=== PATIENT | female | born 1955 | race Caucasian/White ===

== ENCOUNTER → 2024-10-10 12:35 | Outpatient (REF) | payer MEDICARE, OTHER, SELFPAY | LOC: PAVMRI 12:35 | PROVIDERS: ATTENDING PHYSICIAN Physician Assistant Surgical; FAMILY PHYSICIAN Family Medicine | DX: S42.291A Other displaced fracture of upper end of right humerus, initial encounter for closed fracture (principal) | CPT/HCPCS: 73221 ==

== ENCOUNTER 2024-10-21 20:06 | Emergency (ER) | payer MEDICARE, OTHER, SELFPAY ==
[2024-10-21 20:16] VITALS: BP 140/84
[2024-10-21 20:37] LABS: Urine Character Clear (Clear)
[2024-10-21 20:41] LABS: Hematocrit 41.2 % (37.0-47.0); Hemoglobin 13.0 g/dL (12.0-16.0); Mean Corp Hgb Conc. 31.6 g/dL (33.0-37.0); Mean Corpuscular Volume 80.2 fL (81.0-99.0); Nucleated Red Blood Cells % 0 %; Platelet Count 344 10^3/uL (130-400); Red Cell Dist. Width 19.3 % (11.5-14.5)
[2024-10-21 20:55] LABS: ALT (SGPT) 12 U/L (0-35); AST (SGOT) 17 U/L (14-36); Albumin 4.8 g/dl (3.5-5.0); Alkaline Phosphatase 107 U/L (38-126); Blood Urea Nitrogen 16 mg/dl (7-17); Calcium 9.6 mg/dl (8.4-10.2); Carbon Dioxide 27 mmol/L (22-30); Chloride 106 mmol/L (98-107); Glucose 111 mg/dl (70-99); Potassium 3.8 mmol/L (3.5-5.1); Sodium 142 mmol/L (135-145); Total Protein 7.6 g/dl (6.3-8.2); eGFR > 60.00
[2024-10-21 20:56] LABS: Lipase 25 U/L (23-300)
[2024-10-21 20:58] LABS: Urine Squamous Cell >30 /LPF (Few)
--- NOTE | 2024-10-22 01:04 | ED.GENMED ---
History of Present Illness
General
Chief Complaint: Abdominal Pain
Source: patient and spouse
Exam Limitations: none
Time Seen by Provider: 10/22/24 00:33
Nursing documentation reviewed up to this point in time: agreed with
History of Present Illness
History of Present Illness:
69-year-old female presenting to the emergency department today with concerns of right upper quadrant abdominal pain associated nausea no vomiting or diarrhea over the past 3 days worsening today. No fevers. No history of abdominal surgeries.
Past History
Past History
ED Past Medical History: None
ED Past Surgical History: Other (Noncontributory)
Social History
Alcohol: Occasional
Drug: None
Personal:
Living: with family
Employment: Employed
Family History
Family History: Other (Noncontributory)
Review of Systems
Review of Systems
Allergies reviewed?: Yes
All Other Systems: ROS reviewed and negative except as documented in HPI and ROS
Phy Exam
Physical Exam
Physical Exam:
GENERAL: Alert , in no apparent distress
EYE: pupils equal and reactive
NECK: Supple, no significant adenopathy.
ENT: o/p clr, mmm.
CARDIAC: Regular rate and rhythm .
LUNGS: Clear breath sounds bilaterally, no acute respiratory distress, no wheezes/rales/rhonchi
ABDOMEN: Right upper quadrant pain positive Mann's.
NEUROLOGICAL: Alert and oriented, no focal neuro deficits
SKIN: Warm and dry, skin intact.
MUSCULOSKELETAL: No edema, well perfused.
PSYCH: Normal and appropriate interaction.
Course
Orders/Labs/Results
Orders:
Orders
10/21/24 20:29
Complete Blood Count/With Diff Urgent
Comprehensive Metabolic Panel Urgent
Lipase Urgent
Urinalysis Reflex To Culture Urgent
Date Specimen was Collected: 10/21/24
Time Specimen was Collected: 20:19
Urine Microscopic Reflex Cult Urgent
Urine Culture Urgent
MEGHAN Source: U
Specimen Description:
Date Specimen was Collected: 10/21/24
Time Specimen was Collected: 20:19
10/22/24 00:42
US Abdomen Complete/Upper Urgent
Comment:
Reason For Exam: RUQ pain
10/22/24 01:00
HYDROmorphone [Dilaudid] 0.5 mg IV NOW STA
Ondansetron Injectable [Zofran] 4 mg IV NOW STA
10/22/24 02:45
CT Abd/Pel (IV only)-DH only Urgent
Comment:
Reason For Exam: right sided abd pain
10/22/24 04:21
EKG [Electrocardiogram (*1)] Urgent
Reason for Study: Abdominal Pain
EKG- Treatment ONCE
Abnormal Lab Results
10/21/24
20:29
MCV 80.2 L fL
(81.0-99.0)
MCH 25.3 L pg
(27.0-31.0)
MCHC 31.6 L g/dL
(33.0-37.0)
RDW 19.3 H %
(11.5-14.5)
Glucose 111 H mg/dl
(70-99)
Ur Occult Blood Reflex 1+ A
(Negative)
Leukocyte Esterase Rfl 1+ A
(Negative)
Urine RBC 3-6 A /HPF
(0-2)
Urine WBC (Reflex) 11-15 A /HPF
(0-5)
Urine Bacteria (Reflex) Few A
(Negative)
Urine Albumin (Reflex) 1+ A
(Neg - Trace)
10/21/24 20:29
10/21/24 20:29
Vital Signs
Initial and Last Documented VS:
Initial Vital Signs
Temp Pulse Resp BP Pulse Ox
98.4 F 96 16 140/84 94
10/21/24 20:16 10/21/24 20:16 10/21/24 20:16 10/21/24 20:16 10/21/24 20:16
Last Documented Vital Signs
Temp Pulse Resp BP Pulse Ox
98.4 F 84 16 131/73 98
10/21/24 20:16 10/22/24 03:00 10/22/24 03:00 10/22/24 03:00 10/22/24 03:00
MDM/Problems Addressed
MDM/Problems Addressed:
69-year-old female presenting to the emergency department today with concerns of right upper quadrant pain worsening over the past 3 days specifically worsening over the past few hours. Reproducible here to the right upper quadrant some mild
distention diffusely. On examination here symptoms are specifically reproducible on exam making primary abdominal pathology most likely. Cardiac etiology seems very unlikely in the circumstance. EKG without obvious emergent or acute changes.
Labs unremarkable CT and ultrasound without emergent findings. Patient sleeping for multiple hours while here. Significant process appears unlikely at this time stable for close outpatient follow-up. Return precautions given.
*Pulse Oximetry
SaO2: 94
Oxygen Mode of Delivery: Room air
Patient hypoxic: no (98)
*Critical Care Note
Total Time (30-74mins, 75-104mins- exclusive of procedures): Not Applicable
ED Attending Note
-
Portions of this chart may have been created with voice recognition software.� Occasional wrong word or��sound alike� substitutions may have occurred due to the inherent limitations of voice recognition software.
Discharge Plan
Departure
Patient Disposition: Home (Routine Discharge)
Date of Disposition: 10/22/24
Time of Disposition: 04:51
Patient with high blood pressure during this ER visit?: No
Condition: Good
Covid-19: Not Applicable
Discharge Problem:
Abdominal pain
Instructions: Abdominal Pain
Prescriptions:
New
pantoprazole [Protonix] 40 mg tablet,delayed release (DR/EC)
40 mg PO DAILY Qty: 14 0RF
No Action
Sleep Medication
PO PRN PRN (Reason: sleep)
Patient Comments:
pt. states that this is a new medication. She is not sure of the name ot the dose.
maitutfjsg-hpowrtgiedqln-tybw 1 EACH tablet
1 - 2 ea PO Q6HPRN PRN (Reason: headache) Qty: 20 0RF
amoxicillin 500 MG capsule
500 mg PO TID Qty: 30 0RF
Referrals:
Vidya Hoyt DO [Family Provider]
Activity Restrictions/Additional Instructions:
You came to the emergency department today with concerns of abdominal pain. Here you had extensive workup without obvious explanation. Please follow-up closely as an outpatient. Return for any worsening, new or concerning symptoms.
Interventions
Interventions:
*Risk Screen - Suicide Last Done: 10/21/24 20:16
*General Assessment Last Done: 10/22/24 01:26
*Neglect/Abuse Screening Last Done: 10/21/24 20:16
*ED- Fall Risk Assessment Last Done: 10/21/24 20:16
KN-Vqbvis-Dyoqhtdpvw Assessment Last Done: 10/22/24 01:26
Discharge Date and Time
Print Language: ALGERIAN
[2024-10-22] MEDS: ZOFRAN 4 MG IV (01:18)
[2024-10-22] MEDS: DILAUDID 0.5 MG IV (01:18)
[2024-10-22 01:26] VITALS: BP 135/75
[2024-10-22 03:00] VITALS: BP 131/73
== END 2024-10-22 05:50 | disposition home or self-care (01) ==
LOC: EMR 20:06
PROVIDERS: Student in an Organized Health Care Education/Training Program; EMERGENCY PHYSICIAN Emergency Medicine; FAMILY PHYSICIAN Family Medicine
DX: R10.11 Right upper quadrant pain (principal); R11.0 Nausea
CPT/HCPCS: 99284; 96374; 96375; 74177; 76700; 80053; 81003; 81015; 83690; 85025; 87086; 93005; Q9967

== ENCOUNTER 2024-10-31 06:15 | Emergency (ER) | payer MEDICARE, OTHER, SELFPAY ==
[2024-10-31] VITALS (7 sets, daily range): BP systolic 119–149; BP diastolic 74–92; BMI 22.6
--- NOTE | 2024-10-31 07:04 | ED.GENMED ---
History of Present Illness
General
Chief Complaint: Abdominal Pain
Source: patient
Time Seen by Provider: 10/31/24 06:43
History of Present Illness
History of Present Illness:
Note:
CHIEF COMPLAINT(S)
Right-sided abdominal and flank pain persisting for approximately three weeks.
HISTORY OF PRESENT ILLNESS
The patient is a 69-year-old female who presents with complaints of right-sided abdominal and flank pain for approximately three weeks. She has a high pain tolerance and initially hoped the pain would subside on its own. Despite previous visits to
the emergency department and thorough evaluations�including a negative computed tomography scan and ultrasound of the abdomen and pelvis, a normal electrocardiogram, and an unremarkable endoscopy�the pain persists. She reports difficulty eating but
denies vomiting. She describes the pain as located near the ribs and a bit lower, worsened by movement, but not by deep breaths. The patient reports being very tender in the rib area and states that the pain is intolerable.
ADDITIONAL HISTORY OBTAINED FROM SOURCES OTHER THAN THE PATIENT
The patient indicates that she underwent previous testing and evaluations by healthcare providers, mentioning an analysis by a certain 'Dr. Palomino,' including biopsy results from a polyp found during endoscopy, which was reported as normal except for
the presence of fatty tissue identified, likely a lipoma.
PHYSICAL EXAM
- General: Alert and oriented.
- Head: Normocephalic, atraumatic.
- Cardiovascular: S1 and S2 heart sounds regular, no murmurs.
- Respiratory: No respiratory distress, lungs clear bilaterally.
- Gastrointestinal: Abdomen soft, non-tender.
- Musculoskeletal: Right chest wall tenderness localized to the eighth and ninth ribs anteriorly.
- Extremities: No edema, normal pulses.
PROBLEM LIST
Acute:
- Right-sided abdominal and flank pain
- Musculoskeletal pain potentially due to strain or tear
Chronic:
- Angioma
PLAN
- Order laboratory tests to assess electrolytes and other relevant serum markers.
- Perform an X-ray to further evaluate the possibility of musculoskeletal strain.
- Prescribe a non-opioid analgesic to address musculoskeletal pain, avoiding additional opioids given the patients current use of oxycodone for a back angioma.
- Consider a consultation with a musculoskeletal specialist if the pain persists or lab results and imaging indicate a specific concern.
DIFFERENTIAL DIAGNOSIS
The Differential Diagnosis includes, in no particular order and is not limited to:
1. Musculoskeletal strain or tear
2. Costochondritis
3. Rib fracture or bone lesion
4. Intercostal neuralgia
5. Gastrointestinal causes (e.g., gallbladder disease)
6. Renal pathology (e.g., nephrolithiasis)
7. Herpes Zoster
8. Pleural effusion or pleuritis
9. Subphrenic abscess
10. Cardiac-related pain (e.g., atypical angina).
CARE-UPDATE
10/31/24 - 11:37
Pain improved after oxycodone administration, suggesting a musculoskeletal source of pain. Laboratory findings were unremarkable, and there is no suspicion of pulmonary embolism or colitis. The patient is stable for discharge. Informed the patient
to follow up with her pain management doctor and advised that a prescription for oxycodone is not appropriate at this time.
Disposition:
SUMMARY OF ENCOUNTER
The patient, a 69-year-old female, was seen in the emergency department (ED) for persistent right-sided abdominal and flank pain that has lasted for approximately three weeks. Despite negative imaging and evaluations in previous visits, her pain,
described as intolerable and tender around the right ribs, persisted. X-ray imaging was ordered to evaluate for musculoskeletal strain due to significant tenderness localized to the eighth and ninth ribs anteriorly. A non-opioid analgesic was
prescribed to manage the musculoskeletal pain.
DISPOSITION
Discharged home in good condition.
ASSESSMENT
The patient presents with right flank pain, with the working diagnosis leaning towards a musculoskeletal strain or tear, possibly related to activity or movement, given the pain location and tenderness upon examination.
PLAN
- Continue non-opioid analgesic management for musculoskeletal pain.
- Follow-up with a ship painter helper as needed.
- Monitor symptoms and return if pain worsens or does not improve.
INDEPENDENT REVIEW OF LABS AND INTERPRETATION OF TESTS
My independent interpretation of the X-ray indicates a suspected musculoskeletal source for the pain, consistent with tenderness in the rib area.
PATIENT EDUCATION AND COUNSELING
The patient was informed about the suspected musculoskeletal origin of her pain and educated on the avoidance of activities that may exacerbate her symptoms. Advised on the proper use of prescribed analgesics and the importance of follow-up with her
pain management doctor.
FOLLOW-UP INSTRUCTIONS
The patient should follow up with her pain management doctor and seek additional care if symptoms do not improve or worsen.
MEDICATION RECONCILIATION
A non-opioid analgesic was prescribed for managing the musculoskeletal pain.
MEDICAL DECISION MAKING
-Number and Complexity of Problems Addressed:
Chronic conditions affecting care include a non-specific chronic pain history and a previous diagnosis of angioma. Differential diagnosis included musculoskeletal strain or tear, costochondritis, rib fracture or bone lesion, intercostal neuralgia,
and various visceral causes, among others.
-Data:
Category 1: Tested and interpreted X-ray imaging.
Category 2: Additional history was obtained from prior external records and examinations by previous healthcare providers.
-Risk:
Prescription medication was considered with a focus on non-opioid options due to the patients existing therapy with oxycodone. There were no significant findings necessitating immediate admission or intervention.
Consideration of Admission/Observation: Escalation of care including admission/observation was considered given the complexity and risk of the patients presenting complaint. Ultimately, the patient was considered stable for discharge due to
reassuring work-ups and stability upon reexamination with manageable symptoms and reliable follow-up.
DIAGNOSIS
Musculoskeletal chest wall pain, possibly due to strain or tear (ICD-10: M54.6).
Chronic pain, unspecified (ICD-10: G89.2).
Past History
Past History
ED Past Medical History: None
ED Past Surgical History: Other (Noncontributory)
PSI?: Yes
Social History
Alcohol: Occasional
Drug: None
Personal:
Living: with family
Employment: Employed
Family History
Family History: Other (Noncontributory)
Phy Exam
Physical Exam
Physical Exam:
.
Course
Orders/Labs/Results
Orders:
Orders
10/31/24 07:21
IV Insert/Care/Rem.- Treatment PRN
10/31/24 07:22
CR Chest - 2 Views Urgent
Comment:
Reason For Exam: right chest wall pain
10/31/24 07:30
Complete Blood Count/With Diff Urgent
Comprehensive Metabolic Panel Urgent
Lipase Urgent
10/31/24 07:59
Cyclobenzaprine HCl [Flexeril] 10 mg PO NOW STA
Oxycodone [Roxicodone] 5 mg PO NOW STA
10/31/24 08:00
Lidocaine [Lidocaine 4% Patch] 1 patch TOPICAL DAILY
Apply Lidocaine patch(s) to:: right ribs
10/31/24 09:48
Urinalysis Reflex To Culture Urgent
Date Specimen was Collected: 10/31/24
Time Specimen was Collected: 09:46
Urine Microscopic Reflex Cult Urgent
Urine Culture Urgent
MEGHAN Source: U
Specimen Description:
Date Specimen was Collected: 10/31/24
Time Specimen was Collected: 09:46
Abnormal Lab Results
10/31/24 10/31/24
07:30 09:48
MCV 79.6 L fL
(81.0-99.0)
MCH 25.6 L pg
(27.0-31.0)
MCHC 32.2 L g/dL
(33.0-37.0)
RDW 18.7 H %
(11.5-14.5)
Glucose 104 H mg/dl
(70-99)
Leukocyte Esterase Rfl 1+ A
(Negative)
10/31/24 07:30
10/31/24 07:30
Vital Signs
Initial and Last Documented VS:
Initial Vital Signs
Temp Pulse Resp BP Pulse Ox
98.0 F 89 20 119/92 97
10/31/24 06:20 10/31/24 06:20 10/31/24 06:20 10/31/24 06:20 10/31/24 06:20
Last Documented Vital Signs
Temp Pulse Resp BP Pulse Ox
98.0 F 69 20 149/78 92
10/31/24 06:20 10/31/24 11:15 10/31/24 11:15 10/31/24 11:00 10/31/24 11:15
*Pulse Oximetry
SaO2: 96
Oxygen Mode of Delivery: Room air
Patient hypoxic: no
*Critical Care Note
Total Time (30-74mins, 75-104mins- exclusive of procedures): Not Applicable
ED Attending Note
-
Portions of this chart may have been created with voice recognition software.� Occasional wrong word or��sound alike� substitutions may have occurred due to the inherent limitations of voice recognition software.
Discharge Plan
Departure
Patient Disposition: Home (Routine Discharge)
Date of Disposition: 10/31/24
Time of Disposition: 11:33
Patient with high blood pressure during this ER visit?: Yes
Condition: Good
Discharge Problem:
Right flank pain
Instructions: Flank pain - ED discharge instructions, BLOOD PRESSURE
Prescriptions:
No Action
Sleep Medication
PO PRN PRN (Reason: sleep)
Patient Comments:
pt. states that this is a new medication. She is not sure of the name ot the dose.
cdgcvbhqfn-ateeojdxirmgu-wnvh 1 EACH tablet
1 - 2 ea PO Q6HPRN PRN (Reason: headache) Qty: 20 0RF
amoxicillin 500 MG capsule
500 mg PO TID Qty: 30 0RF
pantoprazole [Protonix] 40 mg tablet,delayed release (DR/EC)
40 mg PO DAILY Qty: 14 0RF
Referrals:
Vidya Hoyt DO [Family Provider] - Call in 1-3 days for appt
Interventions
Interventions:
*Risk Screen - Suicide Last Done: 10/31/24 06:20
*General Assessment Last Done: 10/31/24 06:20
*Neglect/Abuse Screening Last Done: 10/31/24 06:20
*ED- Fall Risk Assessment Last Done: 10/31/24 06:20
*ED COVID-19 Vaccine History Last Done: 10/31/24 06:20
WQ-Ghzbhk-Bmvjimxoya Assessment Last Done: 10/31/24 06:40
Discharge Date and Time
Print Language: ARABIC
--- NOTE | 2024-10-31 07:05 | EDRN ---
Dr. Soni in room w/ pt at this time.
[2024-10-31 07:44] LABS: Hematocrit 39.5 % (37.0-47.0); Hemoglobin 12.7 g/dL (12.0-16.0); Mean Corp Hgb Conc. 32.2 g/dL (33.0-37.0); Mean Corpuscular Volume 79.6 fL (81.0-99.0); Nucleated Red Blood Cells % 0 %; Platelet Count 322 10^3/uL (130-400); Red Cell Dist. Width 18.7 % (11.5-14.5)
--- NOTE | 2024-10-31 07:44 | EDRN ---
Pain is palpable and constant over R anterolateral ribs and under that area over liver.
[2024-10-31] MEDS: ROXICODONE 5 MG PO ×2 (08:17→11:35)
[2024-10-31] MEDS: LIDOCAINE 4% PATCH 1 PATCH TOPICAL (08:17)
[2024-10-31] MEDS: FLEXERIL 10 MG PO (08:18)
[2024-10-31 08:25] LABS: ALT (SGPT) < 10 U/L (0-35); AST (SGOT) 15 U/L (14-36); Albumin 4.5 g/dl (3.5-5.0); Alkaline Phosphatase 74 U/L (38-126); Blood Urea Nitrogen 15 mg/dl (7-17); Calcium 9.7 mg/dl (8.4-10.2); Carbon Dioxide 24 mmol/L (22-30); Chloride 105 mmol/L (98-107); Estimated Creatinine Clearance 62 ml/min; Glucose 104 mg/dl (70-99); Lipase 45 U/L (23-300); Potassium 3.9 mmol/L (3.5-5.1); Sodium 136 mmol/L (135-145); Total Protein 7.1 g/dl (6.3-8.2); eGFR > 60.00
[2024-10-31 09:56] LABS: Urine Character Clear (Clear)
[2024-10-31 10:22] LABS: Urine Squamous Cell >30 /LPF (Few)
[2024-10-31 10:23] LABS: Urine Red Blood Cell 0-2 /HPF (0-2)
--- NOTE | 2024-10-31 10:41 | EDRN ---
This RN TT'd Dr. Soni about pt's pain that went from to 11/14 and now 12/15.
== END 2024-10-31 11:43 | disposition home or self-care (01) ==
LOC: EMR 06:15
PROVIDERS: EMERGENCY PHYSICIAN Emergency Medicine; FAMILY PHYSICIAN Family Medicine
DX: R10.9 Unspecified abdominal pain (principal)
CPT/HCPCS: 99283; 71046; 80053; 81003; 81015; 83690; 85025; 87086